=== PATIENT | male | born 1990 | race Caucasian/White ===

== ENCOUNTER 2017-01-23 12:59 | Emergency (ER) | payer SELFPAY ==
[2017-01-23 13:07] VITALS: BP 154/94
--- NOTE | 2017-01-23 13:54 | ERNOTE ---
Psychological HPI - General Chief Complaint: Psychiatric Problem Source: Reports: patient Exam Limitations: Reports: no limitations - Immun/Allergies/Home Medications Allergies/Adverse Reactions: Allergies carbamazepine [From Tegretol] Allergy (Verified 01/23/17 13:08) lorazepam Allergy (Verified 01/23/17 13:08) risperidone Allergy (Verified 01/23/17 13:08) Home Medications: HOME MEDICATIONS EPINEPHrine [Epinephrine] 1 mg IJ PRN 01/23/17 [Last Taken Unknown] Paliperidone Palmitate [Invega Sustenna] 1 mg IM ONCE 01/23/17 [Last Taken Unknown] - History of Present Illness Narrative: Patient is brought here by the [facility] for concerns about suicidal ideation. He states that he was in conflict with a friend earlier today that caused him to state that he wanted to . He does not feel like that any more, states that he will be able to avoid this individual and the conflict when he leaves. He lives by himself and on repeated questioning denies any suicidal ideation. He has had two suicide attempts by hanging, is currently getting monthly injections by his psychiatrist (last 3days ago) as well as counselling. He admits to THC and 3-4 drinks a day, denies any other drugs, denies any hallucinations Time Seen by Provider: 01/23/17 13:32 Arrived by: Reports: police Onset/duration: Reports: sudden onset Intent: Reports: prior thoughts of suicide Situational Problems: Reports: other Associated Symptoms: Reports: depressed Review of Systems - Review of Systems Constitutional: Absent: recent illness, fever ENT: Absent: nose congestion, sore throat Respiratory: Absent: shortness of breath, cough Cardiology: Absent: chest pain Gastrointestinal/Abdominal: Absent: nausea, vomiting, diarrhea, abdominal pain Genitourinary: Present: no symptoms reported Musculoskeletal: Present: no symptoms reported Skin: Absent: rash Neurological: Absent: headache, weakness, numbness Psych: Present: depressed - Patient's Past Medical History Patient History - Medical: Anxiety, Depression Patient History - Cardiac/Respiratory: No pertinent hx Patient History - Cancer: No Hx of Cancer Patient History - Surgical Procedures: Appendectomy, T & A Patient History - Other: None - Social History Living Situations: home Psych History: Hx of Anxiety, Hx of Depression, Hx of Schizophrenia Smoking Status: Current every day smoker Alcohol Use: other Drug Use: marijuana - Immunizations Hx Pneumococcal Vaccination: No History of Influenza Vaccine: Yes Psychological Exam - Exam General Appearance: Present: wd/wn, alert, no apparent distress Head Exam: Present: normal inspection, no evidence of injury Neurological: Present: alert, normal mood/affect, calm, oriented x 3 Thoughts/Hallucinations: Present: normal thought pattern, no apparent hallucination Behavior/Eye Contact/Speech: Present: cooperative, good eye contact, normal speech ENT Exam normal except (see below): Yes Eye Exam: Normal inspection: bilateral, PERRL: bilateral Ears, Nose, Throat: Present: normal ENT inspection, normal pharynx Respiratory: Present: no respiratory distress, normal breath sounds, no accessory muscle use, lungs clear Cardiovascular/Chest: Present: regular rate, rhythm, no murmur Gastrointestinal/Abdominal: Present: nontender Extremity Exam: Present: normal inspection - no injury Skin Exam: Present: normal color, warm/dry ED Progress - Vital Signs Patient's Vital Signs:: I have reviewed the patient's vital signs. Vital Signs: Vital Signs 01/23/17 13:01 Temperature 36.8 C Pulse Rate 115 H Respiratory 12 Rate Blood Pressure 154/94 O2 Sat by Pulse 96 Oximetry - Progress/Reassessment Chief Complaint: Psychiatric Problem Departure Clinical Impression: Depression Qualifiers: Depression Type: unspecified Qualified Code(s): F32.9 - Major depressive disorder, single episode, unspecified - Departure Disposition: Home self-care Condition: Stable Instructions: Suicidal Feelings: How to Help Yourself Additional Instructions: follow up with your psychiatrist for further treatment
== END 2017-01-23 14:05 | disposition home or self-care (01) ==
LOC: ER 12:59
DX: F32.9 Major depressive disorder, single episode, unspecified (principal)